=== PATIENT | female | born 1995 | race Caucasian/White ===

== ENCOUNTER 2019-01-29 13:56 | Emergency (ER) | payer MEDICAID ==
[~2019-01-29] VITALS: Ht 152.4 cm; Wt 74.4 kg
[2019-01-29 14:02] VITALS: BP 133/86
--- NOTE | 2019-01-29 14:07 | NUR ---
PT SENT TO LOBBY TO WAIT FOR AVAILABLE BED. UA SPECIMEN CUP PROVIDED TO PATIENT.
[2019-01-29 15:44] LABS: APPEARANCE,URINE HAZY (CLEAR); BILIRUBIN,URINE NEGATIVE (NEGATIVE); BLOOD, URINE NEGATIVE (NEGATIVE); COLOR,URINE YELLOW (YELLOW); LEUKOCYTE ESTERASE ,URINE TRACE (NEGATIVE); NITRITE, URINE NEGATIVE (NEGATIVE); UGLUCOSE NEGATIVE (NEGATIVE)
[2019-01-29 15:56] LABS: RBC,URINE 0-5 /HPF (0-5)
--- NOTE | 2019-01-29 16:55 | NUR ---
Patient ambulated to bed 6 with family. RN evaluating patient at bedside.
[2019-01-29] MEDS ORDERED: hydrOXYzine HCL 25 MG TAB PO ONE (17:15)
[2019-01-29] MEDS ORDERED: cefTRIAXone 1,000 MG in LIDOCAINE 1% ***ER ONLY *** 2.1 ML IM ONE (17:15)
[2019-01-29] MEDS ORDERED: FAMOTIDINE 20 MG TAB PO ONE (17:15)
[2019-01-29] MEDS ORDERED: methylPREDNISolone SS 125 MG in WATER STERILE 2 ML IM ONE (17:15)
[2019-01-29] MEDS ORDERED: MECLIZINE 25 MG TAB PO ONE (17:15)
--- NOTE | 2019-01-29 17:15 | NUR ---
C/O "MIGRAINE HEADACHE" SINCE LAST NIGHT, ALSO HAVING A SORE THROAT AND LOWER BACK PAIN, NON RADIATING; 16 WEEKS , BRENDA 07/06/19 G-1 P-0, TOOK TYLENOL LAST NIGHT WIT VERY LITTLE RELIEF. DENIES N/V/D; SKIN IS PINK/WARM/DRY; AAOX4 WITH EVEN AND STEADY GAIT; LUNGS CLEAR BL; HR EVEN AND REGULAR; VSS; PATIENT POSITIONED FOR COMFORT; HOB ELEVATED; BEDRAILS UP X1; BED DOWN. ER MD MADE AWARE OF PT STATUS.
[2019-01-29] MEDS ORDERED: cefTRIAXone 1,000 MG VIAL ONE (18:21)
[2019-01-29] MEDS ORDERED: LIDOCAINE MPF 1% 5mL VIAL ONE (18:26)
--- NOTE | 2019-01-29 18:34 | NUR ---
FLU SWAB COLLECTED AND SENT TO LAB
[2019-01-29 19:30] VITALS: BP 124/66
--- NOTE | 2019-01-29 19:30 | NUR ---
Patient discharged with v/s stable. Written and verbal after care instructions given and explained. Patient alert, oriented and verbalized understanding of instructions. Ambulatory with steady gait. All questions addressed prior to discharge. ID band removed. Patient advised to follow up with PMD. Rx of CLINDAMYCIN, PROMETHAZINE, PRELONE given. Patient educated on indication of medication including possible reaction and side effects. Opportunity to ask questions provided and answered.
== END 2019-01-29 19:30 | disposition home or self-care (01) ==
LOC: MED 13:56
DX: O26.892 Other specified pregnancy related conditions, second trimester (principal); O23.42 Unspecified infection of urinary tract in pregnancy, second trimester; J01.10 Acute frontal sinusitis, unspecified; J01.00 Acute maxillary sinusitis, unspecified; J01.30 Acute sphenoidal sinusitis, unspecified; Z3A.17 17 weeks gestation of pregnancy
CPT/HCPCS: 81001; 81025; 87086; 87804; 96372; 99284; J0696; J2001; J2930; J8597